=== PATIENT | female | born 1985 | race Caucasian/White ===

== ENCOUNTER → 2023-10-20 | Outpatient (CLI) | payer MEDICAID | LOC: COL.RAD 15:01 | DX: M51.36 Other intervertebral disc degeneration, lumbar region (principal) ==

== ENCOUNTER → 2023-12-17 | Outpatient (CLI) | payer MEDICAID | LOC: MHCPAIN 13:13 | DX: M53.3 Sacrococcygeal disorders, not elsewhere classified (principal); D17.1 Benign lipomatous neoplasm of skin and subcutaneous tissue of trunk; M35.7 Hypermobility syndrome; Z87.42 Personal history of other diseases of the female genital tract | CPT/HCPCS: G0463 ==

== ENCOUNTER → 2024-03-07 | Outpatient (CLI) | payer MEDICAID ==
[~2024-03-07] MED LIST: Iohexol 300 - 10 ML VIAL ONE; Triamcinolone 40 MG/ML 1 ML VIAL ONE
== END ==
LOC: MHCPAIN 09:04
DX: M54.50 Low back pain, unspecified (principal); M53.3 Sacrococcygeal disorders, not elsewhere classified
CPT/HCPCS: J3301; Q9967

== ENCOUNTER → 2024-05-02 | Outpatient (CLI) | payer MEDICAID ==
[~2024-05-02] MED LIST changes: -Iohexol 300 - 10 ML VIAL ONE; +Lidocaine PF 1% (10 MG/ML) 5 ML VIAL ONE
== END ==
LOC: MHCPAIN 12:41
DX: M70.62 Trochanteric bursitis, left hip (principal); M25.552 Pain in left hip
CPT/HCPCS: J3301

== ENCOUNTER → 2024-06-13 | Outpatient (CLI) | payer MEDICAID ==
[~2024-06-13] MED LIST changes: +Iohexol 300 - 10 ML VIAL ONE; -Lidocaine PF 1% (10 MG/ML) 5 ML VIAL ONE
== END ==
LOC: MHCPAIN 11:09
DX: M54.50 Low back pain, unspecified (principal); M53.3 Sacrococcygeal disorders, not elsewhere classified; M25.551 Pain in right hip
CPT/HCPCS: G0260; J3301; Q9967